=== PATIENT | female | born 1990 | race Hispanic/Latino ===

== ENCOUNTER 2024-06-14 11:31 | Emergency (ER) | payer OTHER, SELFPAY ==
[2024-06-14 11:46] VITALS: BP 126/82; PULSE 101; RESP 18; TEMP 36.9; O2SAT 100; BMI 24.4
--- NOTE | 2024-06-14 12:14 | EKG_ITS ---
[address] [address] Test Date: 2024-06-14 Pat Name: Key Beasley Department: [facility] Room: Gender: Female Compliance Aide: BONITA : 1990 Requested By: Order Number: [id number] Reading MD: Garrison Davis MD Measurements Intervals [place] Rate: 93 P: 54 MO: 130 QRS: 55 QRSD: 72 T: 55 QT: 368 QTc: 457 Interpretive Statements Normal sinus rhythm Electronically Signed On 06-14-2024 13:34:43 PST by Garrison Davis MD
--- NOTE | 2024-06-14 12:45 | ED_ITS ---
HPI - Recheck/Abnormal Lab/Rx <Otilia Dubose PA-C - Last Filed: 06/14/24 14:32> General Chief Complaint: Recheck/Abnormal Lab/Rx Stated Complaint: lithium medication making her hands shake Time Seen by Provider: 06/14/24 12:45 Source: patient Mode of arrival: Family Vehicle History of Present Illness HPI narrative: Ms. Beasley is a very pleasant 33-year-old female with a past medical history of asthma, bipolar disorder, alcohol use disorder currently 13 days sober who presents to the emergency department for hand tremors x 4 days. Patient started an alcohol detox program approximately 13 days ago, she had withdrawal type symptoms on the 1st 3 days and she was then transferred to [facility] for continued detox and treatment of her bipolar disorder. About 9 days ago she was started on 300 mg of lithium twice a day, Abilify, trazodone. She also takes Singulair for her asthma and Benadryl, melatonin, Prilosec [id number] as needed. She [place] [facility] [place] and the following day is when she developed tremors of her bilateral hands and the sensation of teeth chattering. She feels like the tremors are getting worse. The tremors are constant at rest and with movement. She called her psychiatrist [facility] who recommend she comes to the emergency department to have her lithium levels checked. She denies any other symptoms including pain, headache, dizziness, lightheadedness, abdominal pain, nausea, vomiting, diarrhea, dysuria. She was not taking any other medications during her inpatient stay except for occasional gabapentin. She does smoke cigarettes and she occasionally smokes marijuana but she denies any other drug use. Related Data Allergies Allergy/AdvReac Type Severity Reaction Status Date / Time azithromycin Allergy Abdominal Verified 06/14/24 11:54 Pain erythromycin base Allergy Abdominal Verified 06/14/24 11:54 [From E-Mycin] Pain guaifenesin Allergy Nausea Verified 06/14/24 11:54 metoclopramide Allergy ITCHING Verified 06/14/24 11:54 Sulfa (Sulfonamide Allergy Abdominal Verified 06/14/24 11:54 Antibiotics) Pain cilantro Allergy Hives Uncoded 06/14/24 11:54 Review of Systems <Otilia Dubose PA-C - Last Filed: 06/14/24 14:32> Review of Systems ROS Unobtainable: All systems reviewed & are unremarkable except as noted in HPI and below Patient History <Otilia Dubose PA-C - Last Filed: 06/14/24 14:32> Social History Smoking Status: Current every day smoker Smoking Status: Current every day smoker tobacco type: cigarettes Exam <Otilia Dubose PA-C - Last Filed: 06/14/24 14:32> Narrative Exam Narrative: GENERAL: 33 year old patient appears stated age. Well-developed patient, in no acute distress. Tremor of hands and occasional teeth chattering that is able to be controlled. HEAD: Atraumatic. Normocephalic. EYES: PERRL. Extraocular motions intact. No scleral icterus. No injection or drainage. NECK: Trachea midline. Cervical ROM intact. CARDIOVASCULAR: Regular rate and rhythm. RESPIRATORY: ?Nonlabored respirations. ?Speaking in clear, full sentences. ?Clear to auscultation. Breath sounds equal bilaterally. No wheezes, rales, or rhonchi. ? GASTROINTESTINAL: Abdomen soft, non-tender, nondistended. Normal BS. EXTREMITIES: No edema or joint tenderness. Bilateral hand tremor present at rest. NEURO: AOx3. ?Clear speech. ?Moves all 4 extremities appropriately with the exception of hand tremor. No pronator drift. Normal heel-singh. No facial asymmetry. SKIN: No rash or erythema of visible areas Initial Vital Signs Initial Vital Signs: Vital Signs Temperature 98.5 F 06/14/24 11:46 Pulse Rate 101 H 06/14/24 11:46 Respiratory Rate 18 06/14/24 11:46 Blood Pressure 126/82 06/14/24 11:46 Pulse Oximetry 100 06/14/24 11:46 Oxygen Delivery Method Room Air 06/14/24 11:46 <Ashok Markham MD - Last Filed: 06/14/24 18:57> Initial Vital Signs Initial Vital Signs: Vital Signs Temperature 98.5 F 06/14/24 11:46 Pulse Rate 101 H 06/14/24 11:46 Respiratory Rate 18 06/14/24 11:46 Blood Pressure 126/82 06/14/24 11:46 Pulse Oximetry 100 06/14/24 11:46 Oxygen Delivery Method Room Air 06/14/24 11:46 Course <Otilia Dubose PA-C - Last Filed: 06/14/24 14:32> Orders Ordered: ED Orders 06/14/24 12:03 EKG-12 Lead Stat 06/14/24 13:13 Acetaminophen Stat Complete Blood Count AUTO DIFF Stat Comprehensive Metabolic Panel Stat Ethanol (ETOH) Stat [place] Stat Salicylate Stat TSH w/ Reflex to FT4 Stat 06/14/24 14:05 Urine Drug Screen, Rapid Stat Vital Signs Vital signs: Vital Signs - 8 hr 06/14/24 11:46 06/14/24 14:39 Temperature 98.5 F Pulse Rate 101 H 78 Respiratory Rate 18 16 Blood Pressure 126/82 122/90 Pulse Oximetry 100 100 Oxygen Delivery Method Room Air Room Air <Ashok Markham MD - Last Filed: 06/14/24 18:57> Orders Ordered: ED Orders 06/14/24 12:03 EKG-12 Lead Stat 06/14/24 13:13 Acetaminophen Stat Complete Blood Count AUTO DIFF Stat Comprehensive Metabolic Panel Stat Ethanol (ETOH) Stat [place] Stat Salicylate Stat TSH w/ Reflex to FT4 Stat 06/14/24 14:05 Urine Drug Screen, Rapid Stat Vital Signs Vital signs: Vital Signs - 8 hr 06/14/24 11:46 06/14/24 14:39 Temperature 98.5 F Pulse Rate 101 H 78 Respiratory Rate 18 16 Blood Pressure 126/82 122/90 Pulse Oximetry 100 100 Oxygen Delivery Method Room Air Room Air MDM - Recheck/Abnormal Lab/Rx <Otilia Dubose PA-C - Last Filed: 06/14/24 14:32> Lab Data 06/14/24 13:13 06/14/24 13:13 Labs: Lab Results 06/14/24 06/14/24 Range/Units 13:13 14:05 WBC 10.9 (4.5-11.0) X10^3/uL RBC 3.92 L (4.0-5.2) X10^6/uL Hgb 12.7 (12.0-16.0) g/dL Hct 37.7 (36-46) % MCV 96.2 (80-100) fL MCH 32.6 (26-34) PG MCHC 33.8 (30-36) % RDW 14.4 (11.6-14.8) % Plt Count 376 (150-400) X10^3/uL Neut % (Auto) 68.8 (50-75) % Lymph % (Auto) 18.2 L (25-40) % [place] % (Auto) 6.3 (3-14) % Eos % (Auto) 5.5 H (2-4) % Baso % (Auto) 1.2 (0-2) % Neut # (Auto) 7500 H (4972-0156) /uL Lymph # (Auto) 2000 (0201-1301) /uL [place] # (Auto) 700 (0-900) /uL Eos # (Auto) 600 H (0-450) /uL Baso # (Auto) 100 (0-100) /uL Sodium 138 (137-145) mmol/L Potassium 4.1 (3.4-5.1) mmol/L Chloride 103 (98-107) mmol/L Carbon Dioxide 23 (22-32) mmol/L BUN 6 L (7-17) mg/dL Creatinine 0.66 (0.52-1.04) mg/dL Estimated GFR > 60 (>60) mL/min BUN/Creatinine Ratio 9.1 (6-22) Glucose 99 (70-100) mg/dL Calcium 9.5 (8.4-10.2) mg/dL Total Bilirubin 0.4 (0.2-1.3) mg/dL AST 38 H (14-36) IU/L ALT 30 (<35) IU/L Alkaline Phosphatase 97 (38-126) U/L Total Protein 7.8 (6.3-8.2) g/dL Albumin 4.9 (3.5-5.0) g/dL Globulin 2.9 (1.7-4.1) g/dL Albumin/Globulin Ratio 1.7 (1.0-2.8) TSH 4.38 (0.47-4.68) uIU/mL Salicylates < 1.0 (<20) mg/dL U Opiates 300ng/mL cut Negative (Negative) Ur Oxycodone Screen Negative (Negative) Urine Methadone Screen Negative (Negative) Acetaminophen < 10 (10-30) ug/mL Ur Barbiturates Screen Negative (Negative) U Tricyclic Antidepress Negative (Negative) Ur Phencyclidine Scrn Negative (Negative) Ur Amphetamines Screen Negative (Negative) U Methamphetamines Scrn Negative (Negative) Ur MDMA Scrn (Ecstasy) Negative (Negative) U Benzodiazepines Scrn Negative (Negative) [place] 0.9 (0.6-1.2) mmol/L Urine Cocaine Screen Negative (Negative) U Marijuana (THC) Screen Positive H (Negative) Urine pH Normal (Normal) Urine Specific [place] Normal (Normal) Ethyl Alcohol < 10 ( - 10) mg/dL Ur Creatinine Normal (Normal) Urine Dip Bedside Urine Glucose Negative Bedside Urine Bilirubin - Negative Bedside Urine Ketone - Negative Urine Specific [place] 1.010 Bedside Urine Occult Blood - Negative Bedside Urine pH 7.0 Bedside Urine Protein - Negative Bedside Urine Urobilinogen - Negative Bedside Urine Nitrite - Negative Bedside Urine Leukocytes - Negative Esterase ECG Data Interpretation: ECG normal sinus rhythm with a QTC of 457. MDM Narrative Medical decision making narrative: 33-year-old female with a past medical history of asthma, bipolar disorder, alcohol use disorder currently 13 days sober who presents to the emergency department for hand tremors x 4 days. Differential diagnosis includes but is not limited to medication side effect, withdrawal, lithium toxicity, polypharmacy, electrolyte abnormality, etc. On exam patient is in no acute distress, nontoxic appearing, vital signs appropriate except for slightly elevated heart rate however patient reports that she is feeling very anxious right now. She has a tremor of bilateral hands at rest and occasional teeth chattering. There is no tardive dyskinesia. Consulted with the attending ED physician. We will proceed with lithium levels, baseline psych labs including TSH. Patient is not having any GI symptoms, bradycardia QT prolongation, no neurologic deficits Normal lithium level 0.9. Remainder of lab work overall reassuring, no electrolyte abnormalities, normal renal function, normal WBC count 10.9. TSH 4.38. Patient was very reassured by normal lithium level, and is already attempting to get in contact with the psychiatrist for the next steps and she has a primary care doctor's appointment in 1 week. At this time we made the shared decision to continue her normal lithium dose until dose can be adjusted by her psychiatrist. Discussed that tremors can be a side effect of lithium. We discussed strict ED return precautions. The patient and her spouse verbalized understanding of all information agreeable the plan. She is stable for discharge home. <Ashok Markham MD - Last Filed: 06/14/24 18:57> Lab Data Labs: Lab Results 06/14/24 06/14/24 Range/Units 13:13 14:05 WBC 10.9 (4.5-11.0) X10^3/uL RBC 3.92 L (4.0-5.2) X10^6/uL Hgb 12.7 (12.0-16.0) g/dL Hct 37.7 (36-46) % MCV 96.2 (80-100) fL MCH 32.6 (26-34) PG MCHC 33.8 (30-36) % RDW 14.4 (11.6-14.8) % Plt Count 376 (150-400) X10^3/uL Neut % (Auto) 68.8 (50-75) % Lymph % (Auto) 18.2 L (25-40) % [place] % (Auto) 6.3 (3-14) % Eos % (Auto) 5.5 H (2-4) % Baso % (Auto) 1.2 (0-2) % Neut # (Auto) 7500 H (1979-0596) /uL Lymph # (Auto) 2000 (3345-7337) /uL [place] # (Auto) 700 (0-900) /uL Eos # (Auto) 600 H (0-450) /uL Baso # (Auto) 100 (0-100) /uL Sodium 138 (137-145) mmol/L Potassium 4.1 (3.4-5.1) mmol/L Chloride 103 (98-107) mmol/L Carbon Dioxide 23 (22-32) mmol/L BUN 6 L (7-17) mg/dL Creatinine 0.66 (0.52-1.04) mg/dL Estimated GFR > 60 (>60) mL/min BUN/Creatinine Ratio 9.1 (6-22) Glucose 99 (70-100) mg/dL Calcium 9.5 (8.4-10.2) mg/dL Total Bilirubin 0.4 (0.2-1.3) mg/dL AST 38 H (14-36) IU/L ALT 30 (<35) IU/L Alkaline Phosphatase 97 (38-126) U/L Total Protein 7.8 (6.3-8.2) g/dL Albumin 4.9 (3.5-5.0) g/dL Globulin 2.9 (1.7-4.1) g/dL Albumin/Globulin Ratio 1.7 (1.0-2.8) TSH 4.38 (0.47-4.68) uIU/mL Salicylates < 1.0 (<20) mg/dL U Opiates 300ng/mL cut Negative (Negative) Ur Oxycodone Screen Negative (Negative) Urine Methadone Screen Negative (Negative) Acetaminophen < 10 (10-30) ug/mL Ur Barbiturates Screen Negative (Negative) U Tricyclic Antidepress Negative (Negative) Ur Phencyclidine Scrn Negative (Negative) Ur Amphetamines Screen Negative (Negative) U Methamphetamines Scrn Negative (Negative) Ur MDMA Scrn (Ecstasy) Negative (Negative) U Benzodiazepines Scrn Negative (Negative) [place] 0.9 (0.6-1.2) mmol/L Urine Cocaine Screen Negative (Negative) U Marijuana (THC) Screen Positive H (Negative) Urine pH Normal (Normal) Urine Specific [place] Normal (Normal) Ethyl Alcohol < 10 ( - 10) mg/dL Ur Creatinine Normal (Normal) Urine Dip Bedside Urine Glucose Negative Bedside Urine Bilirubin - Negative Bedside Urine Ketone - Negative Urine Specific [place] 1.010 Bedside Urine Occult Blood - Negative Bedside Urine pH 7.0 Bedside Urine Protein - Negative Bedside Urine Urobilinogen - Negative Bedside Urine Nitrite - Negative Bedside Urine Leukocytes - Negative Esterase Discharge Plan Departure Patient Disposition: Home Clinical Impression: Medication side effects, Tremor Activity Restrictions/Additional Instructions: Thank you for coming to the emergency department. Today you were evaluated for tremor and to have your lithium level checked. Your lithium level is normal at 0.9 (normal 0.6-1.2 mmol/L). It is possible that these tremors are a side effect of the medication and it is very important that you follow up with your primary care doctor and your psychiatrist for further evaluation and dose management. Please return to the emergency department if you develop any new or worsening symptoms such as pain, numbness, tingling, confusion or other concerns. Please follow up with your primary care doctor within the next 2-3 days for ER follow-up. (If you do not have a PCP you can call [phone]. ?to schedule an appointment with an [facility] Primary Care Provider) IF YOU DEVELOP ANY NEW OR WORSENING SYMPTOMS, RETURN TO THE ER! Please read the attached instructions, they highlight more specific treatments and interventions for you at home. Thank you for letting me participate in your care, Otilia Dubose PA-C Stand Alone Forms: Patient Portal/API/Survey ED Sign-out <Ashok Markham MD - Last Filed: 06/14/24 18:57> Cosign ED Attending Sameera Attestation: I was available for consultation during this patient's encounter in the emergency department but was mainly seen by above KOLBY Bingham, I was not consulted specifically for any questions regarding this patient's care physical exam or other portions of medical workup
[2024-06-14 13:29] LABS: Add Manual Diff / Slide Review NO; Basophils Absolute Auto 100 /uL (0-100); Basophils Percent Auto 1.2 % (0-2); Eosinophils Absolute Auto 600 /uL (0-450); Eosinophils Percent Auto 5.5 % (2-4); Hematocrit 37.7 % (36-46); Hemoglobin 12.7 g/dL (12.0-16.0); Lymphocytes Absolute Auto 2000 /uL (1100-4500); Lymphocytes Percent Auto 18.2 % (25-40); Mean Corpuscular HGB Conc 33.8 % (30-36); Mean Corpuscular Hemoglobin 32.6 PG (26-34); Mean Corpuscular Volume 96.2 fL (80-100); Monocytes Absolute Auto 700 /uL (0-900); Monocytes Percent Auto 6.3 % (3-14); Neutrophils Absolute Auto 7500 /uL (1500-7000); Neutrophils Percent Auto 68.8 % (50-75); Platelet Count 376 X10^3/uL (150-400); Red Blood Cell Count 3.92 X10^6/uL (4.0-5.2); Red Cell Distribution Width 14.4 % (11.6-14.8); White Blood Cell Count 10.9 X10^3/uL (4.5-11.0)
[2024-06-14 13:39] LABS: Lithium 0.9 mmol/L (0.6-1.2)
[2024-06-14 13:41] LABS: Alanine Aminotransferase 30 IU/L (<35); Albumin 4.9 g/dL (3.5-5.0); Albumin Globulin Ratio 1.7 (1.0-2.8); Alkaline Phosphatase 97 U/L (38-126); Aspartate Aminotransferase 38 IU/L (14-36); BUN Creatinine Ratio 9.1 (6-22); Bilirubin Total 0.4 mg/dL (0.2-1.3); Blood Urea Nitrogen 6 mg/dL (7-17); Calcium 9.5 mg/dL (8.4-10.2); Carbon Dioxide 23 mmol/L (22-32); Chloride 103 mmol/L (98-107); Estimated Glomerular Filt Rate > 60 mL/min (>60); Ethanol (ETOH) < 10 mg/dL; Globulin 2.9 g/dL (1.7-4.1); Glucose 99 mg/dL (70-100); HEMOLYSIS 18 (0-50); Potassium 4.1 mmol/L (3.4-5.1); Sodium 138 mmol/L (137-145); Total Protein 7.8 g/dL (6.3-8.2)
[2024-06-14 13:42] LABS: Acetaminophen < 10 ug/mL (10-30); Salicylate < 1.0 mg/dL (<20)
[2024-06-14 14:15] LABS: TSH w/ Reflex to FT4 4.38 uIU/mL (0.47-4.68)
[2024-06-14 14:26] LABS: Ur Creatinine Normal (Normal); Ur Specific Gravity Normal (Normal); Urine Amphetamines Negative (Negative); Urine Barbiturates Negative (Negative); Urine Benzodiazepines Negative (Negative); Urine Cocaine Negative (Negative); Urine MDMA Negative (Negative); Urine Methadone Negative (Negative); Urine Methamphetamines Negative (Negative); Urine Opiates Negative (Negative); Urine Oxycodone Negative (Negative); Urine Phencyclidine Negative (Negative); Urine THC Positive (Negative); Urine Tricyclic Antidepressant Negative (Negative); Urine pH Normal (Normal)
[2024-06-14 14:39] VITALS: BP 122/90; PULSE 78; RESP 16; O2SAT 100
== END 2024-06-14 14:41 | disposition home or self-care (01) ==
PROVIDERS: Emergency Provider Physician Assistant
DX: R25.1 Tremor, unspecified (principal); T88.7XXA Unspecified adverse effect of drug or medicament, initial encounter; F17.210 Nicotine dependence, cigarettes, uncomplicated
CPT/HCPCS: 80053; 80178; 80305; 80320; 80329; 81003; 84443; 85025; 93005; 93010; 99282; 99284; G0480

== ENCOUNTER → 2024-08-21 10:45 | Outpatient (CLI) | payer OTHER, SELFPAY ==
[2024-08-21 13:10] LABS: Urine N gonorrhoeae NOT DETECTED
[2024-08-21 13:13] LABS: Urine Chlamydia NOT DETECTED
== END ==
PROVIDERS: PCP Family Medicine; Visit Provider Family Medicine
DX: Z11.3 Encounter for screening for infections with a predominantly sexual mode of transmission (principal); Z30.430 Encounter for insertion of intrauterine contraceptive device
CPT/HCPCS: 87491; 87591

== ENCOUNTER 2024-10-04 06:01 | Emergency (ER) | payer OTHER, SELFPAY ==
[2024-10-04] VITALS (9 sets, daily range): BP systolic 92–114; BP diastolic 57–76; PULSE 73–100; RESP 16–18; TEMP 36.9; O2SAT 96–99; BMI 30.2
--- NOTE | 2024-10-04 06:20 | ED.NAVMDI ---
HPI - Nausea/Vomiting/Diarrhea <Amairani Garcia MD - Last Filed: 10/08/24 06:51> General Chief complaint: Nausea/Vomiting/Diarrhea Stated complaint: John, nauseated Time Seen by Provider: 10/04/24 06:02 Source: patient Mode of arrival: Ambulatory History of Present Illness HPI Narrative: 33-year-old woman with a history of bipolar disorder, alcohol use, reflux and asthma. She presents today complaining of slightly over 12 hours of nausea, vomiting, feeling shaky. She states last time she felt like this her lithium level was elevated. She currently takes 700 mg in the morning 350 mg in the evening has not missed a dose and has already taken her 700 mg dose this morning. She currently has an IUD in place does not believe that she is , no chest pain or shortness for breath Related Data Home Medications ?Medication ?Instructions ?Recorded ?Confirmed omeprazole 20 mg capsule,delayed 40 mg PO DAILY 06/21/24 09/24/24 release naltrexone 50 mg tablet 50 mg PO DAILY 09/24/24 Previous Rx's ?Medication ?Instructions ?Recorded albuterol sulfate 90 mcg/actuation 2 puff inhalation Q6H PRN 06/21/24 aerosol inhaler shortness of breath or wheezing #6.7 grams montelukast 10 mg tablet 10 mg PO DAILY #30 tabs 06/21/24 lithium carbonate 300 mg capsule 300 mg PO .COMPLEX #60 caps 08/14/24 propranolol 10 mg tablet 10 mg PO TID PRN tremor #30 tabs 08/14/24 quetiapine 100 mg tablet 100 mg PO BEDTIME #30 tabs 09/24/24 ondansetron 4 mg disintegrating 4 mg PO Q6H PRN nausea and 10/04/24 tablet vomiting #10 tabs Allergies Allergy/AdvReac Type Severity Reaction Status Date / Time azithromycin Allergy Abdominal Verified 08/21/24 09:09 Pain erythromycin base (From Allergy Abdominal Verified 08/21/24 09:09 E-Mycin) Pain guaifenesin Allergy Nausea Verified 08/21/24 09:09 metoclopramide Allergy ITCHING Verified 08/21/24 09:09 Sulfa (Sulfonamide Allergy Abdominal Verified 08/21/24 09:09 Antibiotics) Pain cilantro Allergy Hives Uncoded 08/21/24 09:09 Review of Systems <Amairani Garcia MD - Last Filed: 10/08/24 06:51> Review of Systems Narrative: Pertinent positive and negative findings as per HPI Patient History <Amairani Garcia MD - Last Filed: 10/08/24 06:51> Medical History Alcohol use disorder, severe, in early remission Unspecified mood [affective] disorder PTSD (post-traumatic stress disorder) Tremor Medication side effects tobacco type: cigarettes and vaping Exam <Amairani Garcia MD - Last Filed: 10/08/24 06:51> Initial Vital Signs Initial Vital Signs: Vital Signs Temperature 98.4 F 10/04/24 06:09 Pulse Rate 100 H 10/04/24 06:09 Respiratory Rate 18 10/04/24 06:09 Blood Pressure 106/76 10/04/24 06:09 Pulse Oximetry 96 10/04/24 06:09 Oxygen Delivery Method Room Air 10/04/24 06:09 General: Healthy appearing, in no acute distress. Able to give a complete and coherent history. Well-nourished well-developed HEENT: Moist mucous membranes, normal sclera with reactive pupils, Respiratory: Lungs are clear to auscultation, no wheezing no rales no rhonchi. Full and symmetrical air movement Cardiac: Regular rate and rhythm no murmurs no bruits Abdomen: Soft, nontender, no rebound or guarding, no flank pain Skin: Warm and dry, no rashes Neurologic: Grossly neurologically intact with no obvious asymmetries or abnormalities Extremities: No trauma, well perfused Psych: Cooperative, appropriate insight and affect <Tegan Shi DO - Last Filed: 10/14/24 19:09> Initial Vital Signs Initial Vital Signs: Vital Signs Temperature 98.4 F 10/04/24 06:09 Pulse Rate 100 H 10/04/24 06:09 Respiratory Rate 18 10/04/24 06:09 Blood Pressure 106/76 10/04/24 06:09 Pulse Oximetry 96 10/04/24 06:09 Oxygen Delivery Method Room Air 10/04/24 06:09 Course <Amairani Garcia MD - Last Filed: 10/08/24 06:51> Orders Ordered: Discontinued Medications Diphenhydramine HCl (Diphenhydramine 50 Mg/Ml Vial) 50 mg IV NOW ONE Stop: 10/04/24 09:20 Last Admin: 10/04/24 09:26 Dose: 50 mg Documented By: DEA Sodium Chloride (Normal Saline 0.9%) 1,000 mls @ 1,000 mls/hr IV BOLUS ONE Stop: 10/04/24 07:18 Last Infusion: 10/04/24 08:55 Dose: Infused Documented By: Admin: 10/04/24 06:31 Dose: 1,000 mls/hr Documented By: GARCIA Lorazepam (Lorazepam 2 Mg/Ml Inj) 0.5 mg IV NOW ONE Stop: 10/04/24 09:09 Last Admin: 10/04/24 09:23 Dose: Not Given Documented By: DEA Ondansetron HCl (Ondansetron 4 Mg/2 Ml Inj) 4 mg IV NOW ONE Stop: 10/04/24 06:20 Last Admin: 10/04/24 06:31 Dose: 4 mg Documented By: GARCIA Vital Signs Vital signs: Vital Signs - 8 hr 10/04/24 06:09 10/04/24 06:25 10/04/24 06:26 Temperature 98.4 F Pulse Rate 100 H 87 88 Respiratory Rate 18 Blood Pressure 106/76 Pulse Oximetry 96 99 98 Oxygen Delivery Method Room Air 10/04/24 06:26 10/04/24 06:30 10/04/24 06:30 Temperature Pulse Rate 83 Respiratory Rate Blood Pressure 109/69 102/65 Pulse Oximetry 98 Oxygen Delivery Method 10/04/24 07:00 10/04/24 07:00 10/04/24 07:30 Temperature Pulse Rate 77 Respiratory Rate Blood Pressure 112/69 106/65 Pulse Oximetry 99 Oxygen Delivery Method 10/04/24 07:30 10/04/24 07:57 10/04/24 08:00 Temperature Pulse Rate 74 Respiratory Rate Blood Pressure 114/75 Pulse Oximetry 99 97 Oxygen Delivery Method <Tegan Shi DO - Last Filed: 10/14/24 19:09> Orders Ordered: Discontinued Medications Diphenhydramine HCl (Diphenhydramine 50 Mg/Ml Vial) 50 mg IV NOW ONE Stop: 10/04/24 09:20 Last Admin: 10/04/24 09:26 Dose: 50 mg Documented By: DEA Sodium Chloride (Normal Saline 0.9%) 1,000 mls @ 1,000 mls/hr IV BOLUS ONE Stop: 10/04/24 07:18 Last Infusion: 10/04/24 08:55 Dose: Infused Documented By: Admin: 10/04/24 06:31 Dose: 1,000 mls/hr Documented By: GARCIA Lorazepam (Lorazepam 2 Mg/Ml Inj) 0.5 mg IV NOW ONE Stop: 10/04/24 09:09 Last Admin: 10/04/24 09:23 Dose: Not Given Documented By: DEA Ondansetron HCl (Ondansetron 4 Mg/2 Ml Inj) 4 mg IV NOW ONE Stop: 10/04/24 06:20 Last Admin: 10/04/24 06:31 Dose: 4 mg Documented By: GARCIA Vital Signs Vital signs: Vital Signs - 8 hr 10/04/24 06:09 10/04/24 06:25 10/04/24 06:26 Temperature 98.4 F Pulse Rate 100 H 87 88 Respiratory Rate 18 Blood Pressure 106/76 Pulse Oximetry 96 99 98 Oxygen Delivery Method Room Air 10/04/24 06:26 10/04/24 06:30 10/04/24 06:30 Temperature Pulse Rate 83 Respiratory Rate Blood Pressure 109/69 102/65 Pulse Oximetry 98 Oxygen Delivery Method 10/04/24 07:00 10/04/24 07:00 10/04/24 07:30 Temperature Pulse Rate 77 Respiratory Rate Blood Pressure 112/69 106/65 Pulse Oximetry 99 Oxygen Delivery Method 10/04/24 07:30 10/04/24 07:57 10/04/24 08:00 Temperature Pulse Rate 74 Respiratory Rate Blood Pressure 114/75 Pulse Oximetry 99 97 Oxygen Delivery Method MDM - Nausea/Vomiting/Diarrhea <Amairani Garcia MD - Last Filed: 10/08/24 06:51> Lab Data 10/04/24 06:26 10/04/24 06:26 Labs: Lab Results 10/04/24 Range/Units 06: WBC 10.4 (4.5-11.0) X10^3/uL RBC 4.29 (4.0-5.2) X10^6/uL Hgb 13.0 (12.0-16.0) g/dL Hct 38.6 (36-46) % MCV 89.9 (80-100) fL MCH 30.4 (26-34) PG MCHC 33.8 (30-36) % RDW 14.4 (11.6-14.8) % Plt Count 321 (150-400) X10^3/uL Neut % (Auto) 72.2 (50-75) % Lymph % (Auto) 18.4 L (25-40) % [place] % (Auto) 3.1 (3-14) % Eos % (Auto) 5.2 H (2-4) % Baso % (Auto) 1.1 (0-2) % Neut # (Auto) 7500 H (4190-8742) /uL Lymph # (Auto) 1900 (6267-6708) /uL [place] # (Auto) 300 (0-900) /uL Eos # (Auto) 500 H (0-450) /uL Baso # (Auto) 100 (0-100) /uL Sodium 140 (137-145) mmol/L Potassium 4.2 (3.4-5.1) mmol/L Chloride 109 H (98-107) mmol/L Carbon Dioxide 21 L (22-32) mmol/L BUN 16 (7-17) mg/dL Creatinine 0.91 (0.52-1.04) mg/dL Estimated GFR > 60 (>60) mL/min BUN/Creatinine Ratio 17.6 (6-22) Glucose 118 H (70-99) mg/dL Calcium 8.8 (8.4-10.2) mg/dL Magnesium 1.9 (1.6-2.3) mg/dL Total Bilirubin 0.5 (0.2-1.3) mg/dL AST 29 (14-36) IU/L ALT 18 (<35) IU/L Alkaline Phosphatase 103 (38-126) U/L Total Protein 7.2 (6.3-8.2) g/dL Albumin 4.4 (3.5-5.0) g/dL Globulin 2.8 (1.7-4.1) g/dL Albumin/Globulin Ratio 1.6 (1.0-2.8) [place] 1.1 (0.6-1.2) mmol/L Point of Care Testing Test Results Negative Urine Dip Bedside Urine Glucose Negative Bedside Urine Bilirubin - Negative Bedside Urine Ketone - Negative Urine Specific [place] 1.015 Bedside Urine Occult Blood - Negative Bedside Urine pH 6.5 Bedside Urine Protein - Negative Bedside Urine Urobilinogen - Negative Bedside Urine Nitrite - Negative Bedside Urine Leukocytes - Negative Esterase MDM Narrative Medical decision making narrative: CC: 12 hours of nausea vomiting diarrhea Complicating co-morbidities: Bipolar disorder, on lithium, aripiprazole 2mg daily, Seroquel 50 mg at night, trazodone 50 mg at bedtime Data collected from: patient Social determinants of health that may influence the patients condition: Medical records reviewed: Differential considered: Exam documented above, pertinent findings include: Lab Test results independently reviewed as above. Pertinent findings: Independently reviewed EKG: Imaging studies independently reviewed: Consultations: Treatments: Re-evaluations: Discussion: <Tegan Shi, DO - Last Filed: 10/14/24 19:09> Lab Data Labs: Lab Results 10/04/24 Range/Units 06:26 WBC 10.4 (4.5-11.0) X10^3/uL RBC 4.29 (4.0-5.2) X10^6/uL Hgb 13.0 (12.0-16.0) g/dL Hct 38.6 (36-46) % MCV 89.9 (80-100) fL MCH 30.4 (26-34) PG MCHC 33.8 (30-36) % RDW 14.4 (11.6-14.8) % Plt Count 321 (150-400) X10^3/uL Neut % (Auto) 72.2 (50-75) % Lymph % (Auto) 18.4 L (25-40) % [place] % (Auto) 3.1 (3-14) % Eos % (Auto) 5.2 H (2-4) % Baso % (Auto) 1.1 (0-2) % Neut # (Auto) 7500 H (4539-5950) /uL Lymph # (Auto) 1900 (6442-9417) /uL [place] # (Auto) 300 (0-900) /uL Eos # (Auto) 500 H (0-450) /uL Baso # (Auto) 100 (0-100) /uL Sodium 140 (137-145) mmol/L Potassium 4.2 (3.4-5.1) mmol/L Chloride 109 H (98-107) mmol/L Carbon Dioxide 21 L (22-32) mmol/L BUN 16 (7-17) mg/dL Creatinine 0.91 (0.52-1.04) mg/dL Estimated GFR > 60 (>60) mL/min BUN/Creatinine Ratio 17.6 (6-22) Glucose 118 H (70-99) mg/dL Calcium 8.8 (8.4-10.2) mg/dL Magnesium 1.9 (1.6-2.3) mg/dL Total Bilirubin 0.5 (0.2-1.3) mg/dL AST 29 (14-36) IU/L ALT 18 (<35) IU/L Alkaline Phosphatase 103 (38-126) U/L Total Protein 7.2 (6.3-8.2) g/dL Albumin 4.4 (3.5-5.0) g/dL Globulin 2.8 (1.7-4.1) g/dL Albumin/Globulin Ratio 1.6 (1.0-2.8) [place] 1.1 (0.6-1.2) mmol/L Point of Care Testing Test Results Negative Urine Dip Bedside Urine Glucose Negative Bedside Urine Bilirubin - Negative Bedside Urine Ketone - Negative Urine Specific [place] 1.015 Bedside Urine Occult Blood - Negative Bedside Urine pH 6.5 Bedside Urine Protein - Negative Bedside Urine Urobilinogen - Negative Bedside Urine Nitrite - Negative Bedside Urine Leukocytes - Negative Esterase MDM Narrative Medical decision making narrative: CC: 12 hours of nausea vomiting diarrhea Complicating co-morbidities: Bipolar disorder, on lithium, aripiprazole 2mg daily, Seroquel 50 mg at night, trazodone 50 mg at bedtime Data collected from: patient Social determinants of health that may influence the patients condition: Medical records reviewed: Differential considered: Exam documented above, pertinent findings include: Lab Test results independently reviewed as above. Pertinent findings: Independently reviewed EKG: Imaging studies independently reviewed: Consultations: Treatments: Re-evaluations: Discussion: 10/04/2024, Dr. Shi: Patient signed out to myself by Dr. Garcia. Patient's labs show normal white count hemoglobin and platelets, chemistries show a CO2 of 21 chloride of 109 otherwise normal electrolytes glucose is 118. Mag is 1.9 LFTs are negative. [place] it was normal range. Patient is seen and evaluated by myself. Patient states she feels tired little bit chilled, she feels little bit nauseated denies any other upper respiratory symptoms, no chest pain, no abdominal back or flank pain. You have a couple episodes of vomiting. Denies any other GI or urinary symptoms. We will add on point of care urine and dip which was negative. Patient drinking fluid here in the department. Patient received fluids and Zofran . We will give patient was short course of Zofran. Patient was tolerating orals but did have little bit of emesis but continued to drink a lot of water. Discussed with patient we will give additional dose of antiemetic but she feels comfortable returning home. Discussed decrease her oral intake for the short term and then slowly increase it over time we will send a short term scope of ondansetron. Discharge Plan Departure Patient Disposition: Home Clinical Impression: Nausea Instructions: DI for Vomiting -- Adult Activity Restrictions/Additional Instructions: Follow up for recheck. You can take ondansetron 1 tablet every 6 hours as needed. [facility] Please return if you have new or worsening symptoms, fevers, new chest pain or shortness of breath, persistent vomiting, black or bloody stools, new abdominal back or flank pain, passing out or other new or concerning changes. Prescriptions: New ondansetron 4 mg tablet,disintegrating 4 mg PO Q6H PRN (Reason: nausea and vomiting) Qty: 10 0RF No Action naltrexone 50 mg tablet 50 mg PO DAILY quetiapine 100 mg tablet 100 mg PO BEDTIME Qty: 30 3RF propranolol 10 mg tablet 10 mg PO TID PRN (Reason: tremor) Qty: 30 4RF omeprazole 20 mg capsule,delayed release(DR/EC) 40 mg PO DAILY montelukast 10 mg tablet 10 mg PO DAILY Qty: 30 6RF albuterol sulfate 90 mcg/actuation HFA aerosol inhaler 2 puff inhalation Q6H PRN (Reason: shortness of breath or wheezing) Qty: 6.7 0RF lithium carbonate 300 mg capsule 300 mg PO .COMPLEX Qty: 60 3RF Rx Instructions: 600 mg (2 tablets) in the morning, 300 mg (1 tablet) in the evening. Referrals: Eva Abreu DO [Primary Care Provider, Family Practice] Stand Alone Forms: Patient Portal/API, Work Release Note
[2024-10-04] MEDS: ONDANSETRON 4 MG/2 ML INJ IV (06:31)
[2024-10-04] MEDS: SODIUM CHLORIDE 0.9% 1,000 ML 1000 ML IV (06:31)
[2024-10-04 06:35] LABS: Add Manual Diff / Slide Review NO; Basophils Absolute Auto 100 /uL (0-100); Basophils Percent Auto 1.1 % (0-2); Eosinophils Absolute Auto 500 /uL (0-450); Eosinophils Percent Auto 5.2 % (2-4); Hematocrit 38.6 % (36-46); Lymphocytes Absolute Auto 1900 /uL (1100-4500); Lymphocytes Percent Auto 18.4 % (25-40); Mean Corpuscular HGB Conc 33.8 % (30-36); Mean Corpuscular Hemoglobin 30.4 PG (26-34); Mean Corpuscular Volume 89.9 fL (80-100); Monocytes Absolute Auto 300 /uL (0-900); Monocytes Percent Auto 3.1 % (3-14); Neutrophils Absolute Auto 7500 /uL (1500-7000); Neutrophils Percent Auto 72.2 % (50-75); Platelet Count 321 X10^3/uL (150-400); Red Blood Cell Count 4.29 X10^6/uL (4.0-5.2); Red Cell Distribution Width 14.4 % (11.6-14.8); White Blood Cell Count 10.4 X10^3/uL (4.5-11.0)
[2024-10-04 06:46] LABS: Lithium 1.1 mmol/L (0.6-1.2)
[2024-10-04 06:48] LABS: Alanine Aminotransferase 18 IU/L (<35); Albumin 4.4 g/dL (3.5-5.0); Albumin Globulin Ratio 1.6 (1.0-2.8); Alkaline Phosphatase 103 U/L (38-126); Aspartate Aminotransferase 29 IU/L (14-36); BUN Creatinine Ratio 17.6 (6-22); Bilirubin Total 0.5 mg/dL (0.2-1.3); Blood Urea Nitrogen 16 mg/dL (7-17); Calcium 8.8 mg/dL (8.4-10.2); Carbon Dioxide 21 mmol/L (22-32); Chloride 109 mmol/L (98-107); Estimated Glomerular Filt Rate > 60 mL/min (>60); Globulin 2.8 g/dL (1.7-4.1); Glucose 118 mg/dL (70-99); HEMOLYSIS < 15 (0-50); Magnesium 1.9 mg/dL (1.6-2.3); Potassium 4.2 mmol/L (3.4-5.1); Sodium 140 mmol/L (137-145); Total Protein 7.2 g/dL (6.3-8.2)
--- NOTE | 2024-10-04 07:37 | PC.NURSE ---
pt reports no n/v. states she feels tired. respirations regular and unlabored gcs 15
[2024-10-04] MEDS: diphenhydrAMINE 50 MG/ML VIAL IV (09:26)
== END 2024-10-04 10:54 | disposition home or self-care (01) ==
PROVIDERS: Emergency Medicine; Emergency Provider Emergency Medicine; Family Provider Family Medicine; PCP Family Medicine
DX: R11.2 Nausea with vomiting, unspecified (principal)
CPT/HCPCS: 36415; 80053; 80178; 81003; 81025; 83735; 85025; 96361; 96374; 96375; 99284; J1200; J2405